=== PATIENT | male | born 1995 | race Caucasian/White ===

== ENCOUNTER 2016-10-28 15:57 | Emergency (ER) | payer OTHER ==
[~2016-10-28] VITALS: Ht 182.9 cm; Wt 70.3 kg
--- NOTE | 2016-10-28 17:26 | ED GENERAL ADULT ---
History of Present Illness General Chief Complaint: General Adult Stated Complaint: "NOT FEELING WELL" Source: patient, family Exam Limitations: no limitations Vital Signs & Intake/Output Vital Signs & Intake/Output Vital Signs Date Time Temp Pulse Resp B/P B/P Pulse O2 O2 Flow FiO2 Mean Ox Delivery Rate 10/28 1910 98.1 81 14 131/86 99 Room Air 10/28 1608 98.0 87 18 144/92 100 Room Air Allergies Uncoded Allergies: Allergy Other N Med Allergies AMOXICILLIN,SULFA,CEFTIN,CEFZIL Reconcile Medications No Known Home Medications Triage Note: PT TO ED FOR TWO DAYS OF MUSCLES ACHES, "FEELING UNWELL" AND "I THINK I HAVE FEVER BUT I NEVER HAVE A TEMP" SAW PCP YESTERDAY AND WAS SENT FOR BLOODWORK "BUT I DIDNT GO". PT ALSO REPORTING INTERMITTENT COUGH "WITH A PAIN IN MY HEAD WHEN I COUGH" HAS NOT TRIED ANYTHING OTC. Triage Nurses Notes Reviewed? yes Onset: Abrupt Duration: day(s): (2-3) Timing: single episode today Severity: mild, moderate Severity Numbers: 4 No Modifying Factors: none Associated Symptoms: cough HPI: 20-year-old male with no significant past medical history presents for evaluation of headache, dizziness, muscleaches and sweats chills and cough for the past 2 or 3 days. Patient reports he was seen in a walk-in center and had a chest x-ray which was within normal limits. He was given cough medicine which she has not been taking. He has been taking ibuprofen with improvement of the headache. He currently reports headache is 4 out of 10 and improved since he took ibuprofen 2 hours before presenting. Headache described as pressure. He denies any fever or shortness of breath hemoptysis chest pain, sick contacts recently traveled tick bites or rash. Per patient he had negative rapid flu and rapid strep walk-in clinic yesterday. (DAKOTA CATHERINE PA-C) Past History Travel History Traveled to [place] past 21 day No Medical History Any Pertinent Medical History? see below for history Neurological: NONE EENT: NONE Cardiovascular: NONE Respiratory: NONE Gastrointestinal: NONE Hepatic: NONE Renal: NONE Musculoskeletal: NONE Psychiatric: NONE Endocrine: NONE Blood Disorders: NONE Cancer(s): NONE Surgical History Surgical History: none Psychosocial History What is your primary language Icelandic Tobacco Use: Never used ETOH Use: 6 Illicit Drug Use: denies illicit drug use Family History Hx Contributory? No (DAKOTA CATHERINE PA-C) Review of Systems Review of Systems Constitutional: Reports: see HPI, chills, fever, malaise. EENTM: Reports: see HPI, throat pain. Respiratory: Reports: see HPI, cough. Cardiovascular: Reports: no symptoms. GI: Reports: no symptoms. Genitourinary: Reports: no symptoms. Musculoskeletal: Reports: see HPI, back pain, joint pain, muscle pain. Skin: Reports: no symptoms. Neurological/Psychological: Reports: other (DIZZINESS). Hematologic/Endocrine: Reports: no symptoms. Immunologic/Allergic: Reports: no symptoms. All Other Systems: Reviewed and Negative (DORENE PACKER,DAKOTA) Physical Exam Physical Exam General Appearance: well developed/nourished, no apparent distress, alert, awake , comfortable Head: atraumatic, normal appearance Eyes: Bilateral: normal appearance, PERRL, EOMI. Ears, Nose, Throat: normal pharynx, normal ENT inspection, hearing grossly normal Neck: normal inspection, supple, full range of motion, no midline tenderness Respiratory: normal breath sounds, chest non-tender, no respiratory distress, lungs clear Cardiovascular: regular rate/rhythm, edema, normal peripheral pulses Peripheral Pulses: 2+ dorsalis pedis (R), 2+ dorsalis pedis (L) Gastrointestinal: normal bowel sounds, soft, non-tender, no organomegaly Back: normal inspection, normal range of motion, no vertebral tenderness Extremities: normal inspection, normal capillary refill, normal range of motion, no edema Neurologic/Psych: no motor/sensory deficits, awake, alert, oriented x 3, normal gait, normal mood/affect Reflexes: 2+: knee (R), knee (L). Skin: intact, normal color, warm/dry Lymphatic: no anterior cervical doyle Core Measures ACS in differential dx? No CVA/TIA Diagnosis: No Severe Sepsis Present: No Septic Shock Present: No (DORENE PACKER,DAKOTA) Progress Differential Diagnoses I considered the following diagnoses in my evaluation of the patient: Viral URI, lung disease, mono, strep throat, pneumonia, meningitis, bronchitis, influenza, sinusitis, allergic rhinitis Plan of Care: Orders Procedure Date/time Status MONOSPOT TEST 10/28 1738 Active LYME TITRE 10/28 1738 Active COMPREHENSIVE METABOLIC PANEL 10/28 1738 Complete CBC WITHOUT DIFFERENTIAL 06/16 1739 Complete Laboratory Tests 10/28/16 1805: Anion Gap 11, Estimated GFR > 60, BUN/Creatinine Ratio 12.9, Glucose 94, Calcium 9.3, Total Bilirubin 1.0, AST 19, ALT 38, Alkaline Phosphatase 81, Total Protein 6.8, Albumin 4.2, Globulin 2.6, Albumin/Globulin Ratio 1.6, CBC w Diff NO MAN DIFF REQ, RBC 4.95, MCV 85.6, MCH 29.6, RDW 12.0, MPV 9.0, Gran % 61.8, Lymphocytes % 25.1, Monocytes % 12.0 H, Eosinophils % 0.5, Basophils % 0.6, Absolute Granulocytes 4.1, Absolute Lymphocytes 1.7, Absolute Monocytes 0.8 H, Absolute Eosinophils 0, Absolute Basophils 0, PUBS MCHC 34.6, Lyme Disease Antibody Pending, Infectious [place] Titer NEGATIVE 5:40 PM: Patient seen and evaluated. No signs of bacterial infection on exam patient is nontoxic-appearing and afebrile. Patient is concerned about meningitis and wants a workup. Orders put in for basic blood work including Lyme titer Monospot and rapid strep and culture. Patient will also be given a liter normal saline and IV Tylenol. Will follow-up and reevaluation of the labs are back. CBC CMP are within normal limits. Monospot is negative. PT reports feeling much better after IV fluids and IV Tylenol. There are no signs of bacterial infection on exam. Patient will be discharged home to continue Tylenol and ibuprofen as needed and drink plenty of fluids. He'll follow up with a primary care doctor this week. Discussed all results with patient and mom and they're agreeable to the plan. (DORENE PACKER,DAKOTA) Initial ED EKG: none (DORENE PACKER,DAKOTA) Departure Departure Disposition: HOME OR SELF CARE Condition: Stable Clinical Impression Primary Impression: Headache Qualifiers: Headache type: unspecified Headache chronicity pattern: acute headache Intractability: not intractable Qualified Code: R51 - Headache Referrals: PHYLLIS CAZARES,MILLIE Price (PCP/Family) Additional Instructions: Rest, drink plenty of fluids. Alternate between Tylenol and ibuprofen every 6 hours as needed for pain or fevers. Use cough medicine as prescribed by walk in clinic. Make a follow up appointment with a primary care doctor this week. Review all results of today's visit with primary care doctor Return to emergency Department with any concerns. Departure Forms: Customer Survey General Discharge Information Prescriptions: Current Visit Scripts No Known Home Medications (DAKOTA CATHERINE PA-C) PA/RADIATION THERAPY TECHNOLOGIST Co-Sign Statement Statement: ED Attending supervision documentation- [] I saw and evaluated the patient. I have also reviewed all the pertinent lab results and diagnostic results. I agree with the findings and the plan of care as documented in the PA's/RADIATION THERAPY TECHNOLOGIST's documentation. [x] I have reviewed the ED Record and agree with the PA's/RADIATION THERAPY TECHNOLOGIST's documentation. [] Additions or exceptions (if any) to the PAs/RADIATION THERAPY TECHNOLOGIST's note and plan are summarized below: [] (SANDEEP LANE DO) Critical Care Note Critical Care Note Critical Care Time: non-applicable (DAKOTA CATHERINE PA-C)
[2016-10-28 18:16] LABS: ABSOLUTE BASOPHIL COUNT 0 /CUMM (0.0-0.2); ABSOLUTE EOSINOPHIL COUNT 0 /CUMM (0.0-0.7); ABSOLUTE GRANULOCYTE CT 4.1 /CUMM (1.4-6.5); ABSOLUTE LYMPH COUNT 1.7 /CUMM (1.2-3.4); ABSOLUTE MONOCYTE COUNT 0.8 /CUMM (0.10-0.60); BASOPHIL % 0.6 % (0.0-2.0); EOSINOPHIL % 0.5 % (0-5); GRANULOCYTE % 61.8 % (42.2-75.2); HEMATOCRIT 42.4 % (42-52); MEAN CORPUSCULAR HGB 29.6 PG (27.0-31.0); MEAN CORPUSCULAR HGB CONC 34.6 G/DL (33.0-37.0); MEAN CORPUSCULAR VOLUME 85.6 FL (80.0-94.0); PLATELET COUNT 196 /CUMM (130-400); RED BLOOD CELL CT 4.95 /CUMM (4.70-6.10); WHITE BLOOD CELL COUNT 6.7 /CUMM (4.8-10.8)
[2016-10-28 19:10] VITALS: BP 131/86
== END 2016-10-28 19:18 ==
LOC: ERH 15:57
PROVIDERS: Physician Assistant Medical
DX: R51 Headache (principal)
CPT/HCPCS: 86618; 96374; J0131